=== PATIENT | female | born 1975 | race Caucasian/White ===

== ENCOUNTER 2019-07-09 10:02 | Emergency (ER) | payer OTHER, MEDICAID ==
[2019-07-09] MEDS: KETOROLAC 60 MG INJ IM (11:34)
[2019-07-09] MEDS: DEXAMETHASONE 10 MG/ML 1 ML INJ IM (11:34)
[2019-07-09] MEDS: DIAZEPAM 5 MG TAB PO (11:34)
== END 2019-07-09 12:03 | disposition home or self-care (01) ==
LOC: FTE 10:02
DX: M62.830 Muscle spasm of back (principal)
CPT/HCPCS: 71045; 81025; 96372; 99284-25